=== PATIENT | female | born 1975 | race Hispanic/Latino ===

== ENCOUNTER 2021-08-01 23:06 | Emergency (ER) | payer SELFPAY | END 2021-08-02 00:38 | disposition home or self-care (01) | LOC: ERS 23:06 | DX: H65.92 Unspecified nonsuppurative otitis media, left ear (principal); J30.9 Allergic rhinitis, unspecified; E11.9 Type 2 diabetes mellitus without complications; Z79.84 Long term (current) use of oral hypoglycemic drugs; E78.2 Mixed hyperlipidemia; I10 Essential (primary) hypertension; F17.210 Nicotine dependence, cigarettes, uncomplicated | CPT/HCPCS: 99283 ==

== ENCOUNTER 2024-11-05 09:56 | Outpatient (CLI) | payer OTHER | END 2024-11-05 09:57 | disposition home or self-care (01) | LOC: BICULT 09:56 | PROVIDERS: ATTEND Student in an Organized Health Care Education/Training Program | DX: R74.8 Abnormal levels of other serum enzymes (principal); N28.89 Other specified disorders of kidney and ureter; K76.0 Fatty (change of) liver, not elsewhere classified | CPT/HCPCS: 76705 ==

== ENCOUNTER 2024-11-12 14:30 | Outpatient (CLI) | payer OTHER ==
[~2024-11-12 14:30] MED LIST: Iopamidol 370 76% 100 ML VIAL ONE
== END 2024-11-12 14:31 | disposition home or self-care (01) ==
LOC: CT 14:30
PROVIDERS: ATTEND Student in an Organized Health Care Education/Training Program
DX: N28.89 Other specified disorders of kidney and ureter (principal)
CPT/HCPCS: 74160; Q9967